=== PATIENT | male | born 1965 | race African-American/Black ===

== ENCOUNTER 2017-09-08 07:34 | Emergency (ER) | payer BC, SELFPAY ==
[2017-09-08 08:33] LABS: ALT (SGPT) 16 U/L (8-55); AST (SGOT) 22 U/L (5-34); Albumin 4.2 g/dL (3.5-5.0); Alkaline Phosphatase 59 U/L (40-150); Anion Gap 14 mmol/L (10-20); BUN (Urea Nitrogen) 16 mg/dL (8.4-25.7); Bilirubin, Total 0.2 mg/dL (0.2-1.2); CK (CPK) 489 U/L (30-200); Calc. Creatinine Clearance 0 mL/min (70-130); Calcium 9.3 mg/dL (7.8-10.44); Carbon Dioxide 23 mmol/L (22-29); Chloride 111 mmol/L (98-107); Estimated GFR-MDRD 70; Glucose 104 mg/dL (70-105); Potassium 4.9 mmol/L (3.5-5.1); Protein, Total 7.2 g/dL (6.0-8.3); Sodium 143 mmol/L (136-145)
[2017-09-08 08:34] LABS: CKMB 1.5 ng/mL (0-6.6); Troponin I 0.057 ng/mL (< 0.028)
[2017-09-08 08:42] LABS: #Basophils 0.1 thou/uL (0.0-0.2); #Eosinphils 0.2 thou/uL (0.0-0.7); #Lymphocytes 1.1 thou/uL (1.20-3.40); #Monocytes 0.6 thou/uL (0.11-0.59); %Basophils 1.5 % (0.0-1.0); %Eosinophils 2.4 % (0.0-10.0); %Lymphocytes 16.1 % (21.0-51.0); %Monocytes 8.3 % (0.0-10.0); %Neutrophils 71.8 % (42.0-75.0); Hemoglobin 13.3 g/dL (14.0-18.0); Mean Corpuscular HGB CONC 31.1 g/dL (32.0-36.0); Mean Corpuscular Hemoglobin 28.7 pg (27.0-31.0); Mean Corpuscular Volume 92.2 fl (80.0-94.0); Mean Platelet Volume 9.1 fL (7.4-10.4); PLT Morphology Comment Appears Decreased; Platelet Count 102 thou/uL (130-400); RBC Distribution Width 12.4 % (11.5-14.5); Red Blood Cell (RBC) Count 4.64 mill/uL (4.70-6.10); White Blood Cell (WBC) Count 6.9 thou/uL (4.8-10.8)
--- NOTE | 2017-09-08 09:02 | RAD ---
CHEST 1 VIEW: Date: 09/08/17 HISTORY: Chest pain. FINDINGS: Heart size is upper limits of normal. No focal air space consolidation, pneumothorax, or effusion. Mi ld pulmonary venous congestion. IMPRESSION: Mild cardiomegaly and pulmonary venous congestion. POS: [facility]
== END 2017-09-08 09:33 | disposition short-term general hospital (02) ==
LOC: NAV ERS 07:34
DX: F41.9 Anxiety disorder, unspecified (principal); R07.9 Chest pain, unspecified; F17.210 Nicotine dependence, cigarettes, uncomplicated
CPT/HCPCS: 71045; 80053; 82553; 84484; 85025; 93005

== ENCOUNTER 2017-10-29 12:23 | Emergency (ER) | payer BC ==
[~2017-10-29 12:23] MED LIST: Iopamidol 370 76% 100 ML VIAL ONE
[2017-10-29 13:00] LABS: #Basophils 0.1 thou/uL (0.0-0.2); #Eosinphils 0.2 thou/uL (0.0-0.7); #Lymphocytes 1.4 thou/uL (1.20-3.40); #Neutrophils 7.2 thou/uL (1.40-6.50); %Basophils 1.3 % (0.0-1.0); %Eosinophils 1.6 % (0.0-10.0); %Lymphocytes 14.3 % (21.0-51.0); %Monocytes 10.3 % (0.0-10.0); %Neutrophils 72.4 % (42.0-75.0); Hemoglobin 13.7 g/dL (14.0-18.0); Mean Corpuscular HGB CONC 30.6 g/dL (32.0-36.0); Mean Corpuscular Hemoglobin 27.8 pg (27.0-31.0); Mean Corpuscular Volume 90.7 fL (78.0-98.0); Mean Platelet Volume 7.8 fL (7.4-10.4); Platelet Count 161 thou/uL (130-400); RBC Distribution Width 12.6 % (11.5-14.5); Red Blood Cell (RBC) Count 4.94 mill/uL (4.70-6.10)
[2017-10-29 13:06] LABS: ALT (SGPT) 13 U/L (8-55); AST (SGOT) 17 U/L (5-34); Albumin 4.3 g/dL (3.5-5.0); Alkaline Phosphatase 57 U/L (40-150); Anion Gap 15 mmol/L (10-20); BUN (Urea Nitrogen) 9 mg/dL (8.4-25.7); Bilirubin, Total 0.5 mg/dL (0.2-1.2); Calc. Creatinine Clearance 0 mL/min (70-130); Calcium 9.4 mg/dL (7.8-10.44); Carbon Dioxide 23 mmol/L (22-29); Chloride 104 mmol/L (98-107); Estimated GFR-MDRD 90; Globulin 3.2 g/dL (2.4-3.5); Glucose 107 mg/dL (70-105); Potassium 4.2 mmol/L (3.5-5.1); Protein, Total 7.5 g/dL (6.0-8.3); Sodium 138 mmol/L (136-145)
[2017-10-29 13:08] LABS: CKMB 0.3 ng/mL (0-6.6); Troponin I Less than 0.010 ng/mL (< 0.028)
[2017-10-29 13:12] LABS: INR-International Normal Ratio 1.1; PTT 30.7 SEC (22.9-36.1)
[2017-10-29] MEDS ORDERED: Heparin 25,000 units/D5W 500 ML ONE (14:08)
--- NOTE | 2017-10-29 14:15 | RAD ---
AP VIEW OF THE CHEST: INDICATION: Blood clot in the lung again. COMPARISON: Prior chest radiograph dated 09/08/17. FINDINGS: There is moderate cardiomegaly. There is moderate pulmonary vascular congestion. There is hazy airs pace opacity involving the infrahilar regions suspicious for edema. There is a tiny right pleural ef fusion. No acute osseous abnormality is evident. IMPRESSION: Findings suspicious for changes of mild congestive heart failure. POS: [facility]
--- NOTE | 2017-10-29 14:45 | CT ---
CTA OF THE THORAX UTILIZING IV CONTRAST AND 3D REFORMATTED IMAGING: INDICATION: History of chest pain with a history of prior PE. COMPARISON: Prior exam dated09/08/17. FINDINGS: There is partially occlusive thrombus again noted within the distal aspect of both main pulmonary art eries. There is partially occlusive thrombus within the right intralobar artery. There is worsening occlusive thrombi seen within the posterior segmental branches of the right lower lobe with areas of diffuse ground-glass opacity involving the posteromedial and posterolateral segments of the right lo wer lobe suspicious for hemorrhage or alveolitis. There is nonvisualization of the normal segmental pulmonary arterial branch of the right middle lobe. There is a wedge-like area of consolidation with in the lateral segment of the right middle lobe suspicious for pulmonary infarct. There are partiall y occlusive lobar and segmental branches of the left upper lobe and left lower lobe. There are no ov ert changes to suggest right heart strain. There is scattered emphysema. No enlarged lymph nodes ar e evident. Visualized upper abdomen is unremarkable for acute abnormality. No acute osseous abnorma lity is evident. IMPRESSION: 1. Recurrent PE with fairly extensive lobar and segmental pulmonary embolus involving the right lowe r lobe with areas of pulmonary hemorrhage or alveolitis suspected within the posteromedial and brick yard hand olateral segments of the right lower lobe. 2. Occlusive segment pulmonary embolus within the lateral segment of the right middle lobe with area of pulmonary infarct seen peripherally in the lateral segment of the right middle lobe. 3. Partially occlusive thrombus seen within the distal aspect of both main pulmonary arteries as wel l as within the lobar and segmental branches of the left upper and left lower lobe. 4. No evidence of right heart dysfunction. 5. Stable emphysema. 6. Findings were called to Dr. Carter at 1:45 p.m. on 10/29/17. CODE CR POS: [facility]
== END 2017-10-29 14:36 | disposition short-term general hospital (02) ==
LOC: NAV ERS 12:23
DX: I26.09 Other pulmonary embolism with acute cor pulmonale (principal); I10 Essential (primary) hypertension; F17.210 Nicotine dependence, cigarettes, uncomplicated; Z79.82 Long term (current) use of aspirin; Z79.899 Other long term (current) drug therapy
CPT/HCPCS: 71045; 71275; 80053; 82553; 84484; 85025; 85610; 85730; 93005; 94760; 96374; J1644

== ENCOUNTER 2022-07-25 21:37 | Emergency (ER) | payer OTHER, SELFPAY | END 2022-07-25 22:20 | disposition home or self-care (01) | LOC: NAV ERS 21:37 | DX: R03.0 Elevated blood-pressure reading, without diagnosis of hypertension (principal); F17.210 Nicotine dependence, cigarettes, uncomplicated; Z79.01 Long term (current) use of anticoagulants | CPT/HCPCS: 99283 ==